=== PATIENT | female | born 1930 | race Caucasian/White ===

== ENCOUNTER 2018-09-23 06:09 | Inpatient (IN) | payer MEDICARE, BC ==
[~2018-09-23] VITALS: Ht 167.6 cm; Wt 112.3 kg
--- NOTE | ~2018-09-23 | EKG ---
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
[~2018-09-23 06:09] MED LIST: ASPIRIN EC325 M1 PO; ASPIRIN EC81 M1 PO; ASPIRIN325; ASPIRIN325 PO; B12INJ; BENADRYL25 MG PO; CIPRO500 MG PO; COLACE100 MG PO; COZAAR 50 MG TA50 M2 PO; DULCOLAX5 MG PO; EFFER-K 20 MEQ20 ME1 PO; ENOXAPARIN40 MG/0.1 INJECTION; FLUCONAZOLE 10100 MG PO; FUROSEMIDE 40 M40 M1 PO; K-DUR 20 MEQ T20 MEQ PO; LASIX 40 MG TAB40 M2 PO; LEVOTHYROXINE0.05 MG PO; LISINOPRIL20 MG PO; MAG-AL LIQUID30 ML PO; MELATONIN3 MG PO; METAMUCIL PAC1 UDPKT PO; MILK OF MA2400 MG/10 PO; NAPROSYN500 MG PO; NORCO 5-325 TA1 EACH PO; NORVASC 5 MG TAB5 MG PO; NOVOLOG100 UNIT/1 SUBQ; PANTOPRAZOLE SO40 M1 PO; PHENERGAN 25 MG25 M1 PO; POLYSACCHARIDE150 M1 PO; POTASSIUM20 PO; PRADAXA150 MG PO; PRADAXA75 MG PO; PRINIVIL10 MG PO; PROPAFENONE 15150 MG PO; SYNTHROID125 MCG PO; TOPROL XL100 MG PO; TYLENOL325 MG PO; VITAMIN B-12500 MCG PO
[2018-09-23 06:53] LABS: ABSOLUTE EOSINOPHILS 0.1 thou/uL (0.0-0.7); ABSOLUTE LYMPHOCYTES 1.4 thou/uL (0.8-5.3); ABSOLUTE MONOCYTES 0.9 thou/uL (0.0-1.2); ABSOLUTE NEUTROPHILS 6.7 thou/uL (1.6-8.1); BASOPHILS 0.5 %; EOSINOPHILS 0.7 %; HEMATOCRIT 39.6 % (37.0-47.0); LYMPHOCYTES 15.2 %; MCH 27.9 pg (26.0-34.0); MCHC 32.9 g/dL (28.0-37.0); MCV 84.9 fL (80.0-100.0); MONOCYTES 9.7 %; MPV 9.8 fl. (7.2-11.1); NUCLEATED RBCS 0 /100WBC; PLATELET COUNT* 185 thou/uL (150-400); POLYS 73.9 %; RBC 4.66 mil/uL (4.20-5.00); RDW-CV 15.4 % (10.5-14.5); WBC 9.1 thou/uL (4.0-11.0)
[2018-09-23 07:07] LABS: CALCIUM 8.1 mg/dL (8.5-10.1); CREATININE 1.1 mg/dL (0.6-1.3); POTASSIUM 3.7 mmol/L (3.5-5.1)
[2018-09-23 07:08] LABS: INR 1.1; PROTIME 11.4 Seconds (9.20-11.50)
[2018-09-23 07:18] LABS: ALBUMIN 3.1 g/dL (3.4-5.0); TOTAL BILIRUBIN 1.7 mg/dL (<0.1-1.0); TOTAL PROTEIN 7.1 g/dL (6.4-8.2); TROPONIN-I LEVEL 0.16 ng/mL (<0.06)
[2018-09-23 09:35] VITALS: BP 148/82
[2018-09-23 09:59] VITALS: BP 150/65
--- NOTE | 2018-09-23 11:37 | EKG ---
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: Alexandra LEO : 1930 Requested By: Merissa Donnelly Order Number: [id number] MD: Reyes Reyna Measurements Intervals [place] Rate: 134 P: DC: QRS: -36 QRSD: 107 T: 121 QT: 323 QTc: 483 Interpretive Statements Atrial fibrillation Left axis deviation Consider anterior infarct Repolarization abnormality, prob rate related Compared to ECG 05/21/2017 14:39:46 Sinus rhythm no longer seen Left ventricular hypertrophy no longer present Electronically Signed On 09-23-2018 11:36:50 FIELD OPERATIONS MANAGER by Reyes Reyna [email or web address] <ELECTRONICALLY SIGNED> By: Reyes Reyna MD, FACC 09/23/18 1136 0634 0634 Reyes Reyna MD, [facility] /EPI
[2018-09-23 12:10] VITALS: BP 129/93
[2018-09-23 12:45] LABS: URINE BILIRUBIN NEGATIVE (Negative); URINE BLOOD NEGATIVE (Negative); URINE CLARITY CLEAR; URINE COLOR YELLOW; URINE GLUCOSE-RANDOM NEGATIVE (Negative); URINE KETONES NEGATIVE (Negative); URINE LEUKOCYTES-REFLEX NEGATIVE (Negative); URINE NITRITE-REFLEX NEGATIVE (Negative); URINE PROTEIN TRACE (Negative); URINE SPECIFIC GRAVITY <= 1.005 (1.005-1.030); URINE UROBILINOGEN 0.2 E.U./dl (0.2-1.0)
[2018-09-23 14:43] LABS: BE -3.2 mmol/L (-2 to +3); HCO3 25.7 mmol/L (22.0-26.0); PCO2 62.7 mmHg (35.0-45.0); PO2 85.2 mmHg (75.0-100.0); pH 7.231 (7.340-7.450)
--- NOTE | 2018-09-23 14:49 | CON ---
[address] [address] CONSULTATION Name: SARAH OSBORN Room: [address] IN M.R.#: [id number] Admission: 09/23/18 Attend Phys: Ervin Chew MD Discharge: Date of : [birth year] Report #: [id number] THIS REPORT FOR: //name// CC: Ervin Lai INDICATION: New onset atrial fibrillation and elevated troponin. HISTORY OF PRESENT ILLNESS: The patient is an 88-year-old white female with history of hypertension and paroxysmal atrial fibrillation. She quit taking her medicines a year ago. She presented to the hospital with symptoms to suggest acute heart failure. NT-proBNP is mildly elevated. Chest x-ray shows evidence of pulmonary vascular congestion. The patient reports orthopnea and dyspnea on exertion. She is not having luis chest pain. In this setting, she has an elevated troponin. She has atrial fibrillation with rapid ventricular response rate that is improved on a Cardizem drip. CTA of the chest shows coronary calcifications and calcifications of the larger arteries. She denies any history of myocardial infarction. She is somewhat limited in activity after a fracture of her right femur in the past. She is without other cardiac complaint. PAST MEDICAL HISTORY: 1. Paroxysmal atrial fibrillation. 2. Right femur fracture. 3. Hypertension. 4. Type 2 diabetes mellitus. 5. History of CVA. 6. Right arm fracture. 7. Hysterectomy. 8. Thyroidectomy. 9. Femur fracture. FAMILY HISTORY: Noncontributory. SOCIAL HISTORY: She is a lifelong nonsmoker. She does not drink alcohol. ALLERGIES: CODEINE, PENICILLIN, SULFA, TAPE. PHYSICAL EXAMINATION: VITAL SIGNS: Blood pressure 150/65, pulse is presently in the 80s and irregular. GENERAL: This is a morbidly obese, pleasant white female who does not appear to be in distress. HEENT: Extraocular muscles intact. Mucous membranes are moist. NECK: Shows no obvious jugular venous distention. CHEST: Reveals basilar rales. CARDIOVASCULAR: Reveals an irregularly irregular [place] [address] CONSULTATION Name: SARAH OSBORN Room: [address] IN [facility]#: [id number] Admission: 09/23/18 Attend Phys: Ervin Chew MD Discharge: Date of : [birth year] Report #: [id number] or murmur. ABDOMEN: Reveals a protuberant abdomen, soft and nontender. EXTREMITIES: Shows chronic edema with chronic skin changes associated with chronic edema. SKIN: Dry. LABORATORY DATA: A 12-lead EKG shows atrial fibrillation with rapid ventricular response rate and diffuse ST segment depression. Chest x-ray shows what appears to be pulmonary vascular congestion as outlined above. Labs are reviewed. Electrolytes are within normal limits. BUN 15, creatinine 1.1, serum glucose 167. LFTs within normal limits. Initial troponin was 0.16. NT-proBNP 2496. White blood cell count 9.1, hemoglobin 13.0, platelet count 185,000. IMPRESSION AND RECOMMENDATIONS: 1. Acute on chronic diastolic heart failure. Start IV Lasix and put in Michaels catheter. Follow I's and O's, control blood pressure and heart rate. 2. Hypertension. Medications being adjusted in an effort to improve blood pressure control. 3. Elevated troponin, likely due to a type 2 myocardial infarction with a strain due to heart failure and atrial fibrillation. She is not having symptoms to suggest acute coronary syndrome. Consider noninvasive stress testing down the road. 4. Paroxysmal atrial fibrillation. The patient at high risk for stroke with a JENNIFER score of at least 5. I would recommend anticoagulation. We will continue diltiazem drip, giving a bolus of flecainide in an effort to restore sinus rhythm. <ELECTRONICALLY SIGNED> By: Max Kemp MD, FACC 09/23/18 1449 1058 1248Max Kemp MD, FACC /nt
--- NOTE | 2018-09-23 15:31 | NUR ---
PT ADMITTED TO ROOM 226 AROUND 0930 THIS AM. REFER TO ASSESSMENT. VSS. PT NOTED TO BE SOA WITH EXERTION. 2L O2/NC. TELE AFIB. CARDIZEM GTT. CARDIOLOGY CONSULTED AND NEW ORDERS TO PLACE CATHETER, ADMINISTER IV LASIX, AND OBTAIN ECHO. AROUND 1400 PT APPEARED VERY SOA, FLUSHED, ANXIOUS, AND C/O BURNING CHEST PAIN. STAT EKG OBTAINED, SR BBB. DR. RAE NOTIFIED OF PT'S CONDITION AND ELEVATED TROPONIN. DR. RAE CAME TO BEDSIDE. RT FOR STAT BREATHING TREATMENT. STAT CXRAY OBTAINED. LABS OBTAINED. RT PLACED PT ON BIPAP. LASIX AND ATIVAN GIVEN IVP. PT RESTING AND STABLE WHILE ON BIPAP. REPEAT ABG TO BE OBTAINED AFTER ONE HOUR. WILL CONTINUE TO MONITOR CLOSELY. NO OTHER CONCERNS AT THIS TIME. CLWR. WCTM.
[2018-09-23 16:03] VITALS: BP 132/65
--- NOTE | 2018-09-23 16:21 | 2DMMODE ---
[place] [address] 2 D/M-MODE ECHOCARDIOGRAM Name: SARAH OSBORN Room: [address] IN [facility]#: [id number] Admission: 09/23/18 Attend Phys: Ervin Chew, Discharge: Date of : [birth year] Date of Service: 09/23/18 1621 Report #: [id number] THIS REPORT FOR: //name// APPROVED REPORT Study performed: 09/23/2018 15:06:51 EXAM: Comprehensive 2D, Doppler, and color-flow Echocardiogram Patient Location: In-Patient Room #: [facility] BSA: 2.29 HR: 75 bpm BP: 129/93 mmHg Other Information Study Quality: Fair Indications Dyspnea 2D Dimensions IVSd: 12.43 (7-11mm) LVOT Diam: 20.18 (18-24mm) LVDd: 51.61 mm PWd: 12.62 (7-11mm) Ascending Ao: 30.29 (22-36mm) LVDs: 38.77 (25-40mm) Aortic Root: 28.33 mm Volumes Left Atrial Volume (Systole) LA ESV Index: 25.50 mL/m2 Aortic Valve AoV Peak Thee.: 1.30 m/s AO Peak Gr.: 6.71 mmHg LVOT Max P.90 mmHg AO Mean Gr.: 3.83 mmHg LVOT Mean P.92 mmHg LVOT Max V: 0.69 m/s AO V2 VTI: 19.52 cm LVOT Mean V: 0.44 m/s ADELAI (VTI): 1.91 cm2 LVOT V1 VTI: 11.63 cm Mitral Valve MV Decel. Time: 156.69 ms MV PHT: 45.44 ms MVA (PHT): 4.84 [place]2 [place] [address] 2 D/M-MODE ECHOCARDIOGRAM Name: OSBORNSARAHJessie MENDOZA Room: [address] IN ..#: [id number] Admission: 09/23/18 Attend Phys: Ervin Chew, Discharge: Date of : [birth year]/06/[birth year] Date of Service: 09/23/18 1621 Report #: [id number] TDI Medial E' Thee.: 0.10 m/s Lateral E' Thee.: 0.09 m/s Pulmonary Valve PV Peak Thee.: 1.08 m/s PV Peak Gr.: 4.71 mmHg Left Ventricle The left ventricle is normal size. There is mild global hypokinesis. Mild concentric left ventricular hypertrophy. Left ventricular systolic function is mildly decreased. LVEF is 45-50%. This study is not technically sufficient to allow evaluation of the LV diastolic function due to atrial fibrillation. Right Ventricle The right ventricle is normal size. The right ventricular systolic function is normal. Atria Left atrium is mildly dilated. The right atrium size is normal. Aortic Valve The aortic valve is normal in structure. No aortic regurgitation is present. There is no aortic valvular stenosis. Mitral Valve The mitral valve is normal in structure. Mild mitral regurgitation. No evidence of mitral valve stenosis. Tricuspid Valve The tricuspid valve is normal in structure. There is no tricuspid valve regurgitation noted. Pulmonic Valve The pulmonary valve is normal in structure. There is no pulmonic valvular regurgitation. Great Vessels The aortic root is normal in size. IVC is normal in size and collapses >50% with inspiration. Pericardium There is no pericardial effusion. <Conclusion> [place] [address] 2 D/M-MODE ECHOCARDIOGRAM Name: OSBORNSARAH REJI Room: [address] IN .R.#: [id number] Admission: 09/23/18 Attend Phys: Ervin Chew, Discharge: Date of : [birth year]06/[birth year] Date of Service: 09/23/18 1621 Report #: [id number] The left ventricle is normal size. Mild concentric left ventricular hypertrophy. Left ventricular systolic function is mildly decreased. LVEF is 45-50%. There is mild global hypokinesis. Left atrium is mildly dilated. IVC is normal in size and collapses >50% with inspiration. <ELECTRONICALLY SIGNED> By: Max Kemp MD, FACC 09/23/181620 20 20 Max Kemp MD, FACC /INF
[2018-09-23 16:25] VITALS: BP 132/65
[2018-09-23 16:49] LABS: PCO2 64.8 mmHg (35.0-45.0); PO2 79.3 mmHg (75.0-100.0); pH 7.256 (7.340-7.450)
[2018-09-23 16:50] LABS: BE -0.5 mmol/L (-2 to +3); HCO3 28.2 mmol/L (22.0-26.0)
--- NOTE | 2018-09-23 16:51 | EKG ---
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: : 1930 Requested By: Max Kemp Order Number: [id number] Amy MD: Max Kemp Measurements Intervals [place] Rate: 96 P: 96 HI: 107 QRS: -37 QRSD: 203 T: 137 QT: 403 QTc: 510 Interpretive Statements Sinus rhythm Short HI interval Left bundle branch block Baseline wander in lead(s) I,II,III,aVL,aVF,V1,V2,V3,V4,V5,V6 Compared to ECG 09/23/2018 06:34:32 Short HI interval now present Left bundle-branch block now present Atrial fibrillation no longer present Left-axis deviation no longer present Myocardial infarct finding no longer present Early repolarization no longer present Electronically Signed On 09-23-2018 16:50:59 JOB TRAINER by Max Kemp [email or web address] <ELECTRONICALLY SIGNED> By: Max Kemp MD, [facility] 09/23/18 1650 1401 1401 Max Kemp MD, [facility] /EPI
--- NOTE | 2018-09-23 16:51 | EKG ---
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: : 1930 Requested By: Max Kemp Order Number: [id number] Amy MD: Max Kemp Measurements Intervals [place] Rate: 97 P: 95 CT: 133 QRS: -38 QRSD: 198 T: 133 QT: 425 QTc: 540 Interpretive Statements Sinus rhythm Left bundle branch block Baseline wander in lead(s) I,II,III,aVL,aVF,V1,V2,V3,V4,V5,V6 Compared to ECG 09/23/2018 06:34:32 Left bundle-branch block now present Atrial fibrillation no longer present Left-axis deviation no longer present Myocardial infarct finding no longer present Early repolarization no longer present Electronically Signed On 09-23-2018 16:50:54 DIRECTOR MERIT SYSTEM by Max Kemp [email or web address] <ELECTRONICALLY SIGNED> By: Max Kemp MD, FACC 09/23/18 1650 1400 1400 Max Kemp MD, FACC /EPI
--- NOTE | 2018-09-23 16:52 | EKG ---
[place] [address] ELECTROCARDIOGRAM REPORT Name: SARAH OSBORN Room: [address] ADM IN M.R.#: [id number] Admission: 09/23/18 Attend Phys: Ervin Chew MD Discharge: Date of : [birth year] Report #: [id number] THIS REPORT FOR: //name// [facility] Test Date: 2018-09-23 Test Time: 14:56:11 Pat Name: SARAH OSBORN Department: Room: [address] Gender: F Independent Driver: : 1930 Requested By: Ervin Chew Order Number: [id number] Reading MD: Max Kemp Measurements Intervals [place] Rate: 106 P: IN: QRS: -34 QRSD: 197 T: 128 QT: 444 QTc: 590 Interpretive Statements Atrial flutter with predominant 2:1 AV block Left bundle branch block Compared to ECG 09/23/2018 06:34:32 2:1 AV block now present Left bundle-branch block now present Atrial fibrillation no longer present Left-axis deviation no longer present Myocardial infarct finding no longer present Early repolarization no longer present Electronically Signed On 09-23-2018 16:52:03 GLOBAL MARKETING SPECIALIST by Max Kemp [email or web address] <ELECTRONICALLY SIGNED> By: Max Kemp MD, FACC 09/23/18 1652 1456 1456 Max Kemp MD, FAC /EPI
[2018-09-23 20:00] VITALS: BP 117/65
[2018-09-24] VITALS: BP 114/62
[2018-09-24 04:00] VITALS: BP 135/66
--- NOTE | 2018-09-24 05:52 | NUR ---
PATIENT PARTIALLY PROGRESSING TOWARDS GOALS: PATIENT REMAINS ON BIPAP THIS SHIFT, O2 REMAINS >92%. PATIENT DENIES PAIN AND DISCOMFORT. FOELY REMAINS IN PLACE TO DD. PATIENT HAD AN EPISODE OF ANXIETY WITH THE BIPAP BUT RESOLVED WITH REASSURANCE AND THERAPEUTIC COMMUNICATION. EDUCATION PROVIDED ON BIPAP AND PURPOSE. PATIENT REMAINS IN AFIB, ON CARDIZEM GTT AT 5 ML/HR. HOURLY ROUNDING OBSERVED. CALL LIGHT WITHIN REACH
--- NOTE | 2018-09-24 07:51 | CON ---
[address] [address] CONSULTATION Name: SARAH OSBORN Room: [address] ADM IN .R.#: [id number] Admission: 09/23/18 Attend Phys: Ervin Chew MD Discharge: Date of : [birth year] Report #: [id number] THIS REPORT FOR: //name// CC: Ervin Kemp MD DATE OF SERVICE: 09/23/2018 ATTENDING PHYSICIAN: Ervin Chew MD ATTENDING PHYSICIAN: The patient was admitted on 09/23 early this morning. She is in room 226. INDICATION FOR CONSULTATION: Acute hypoxic hypercarbic respiratory failure, dyspnea. CLINICAL SUMMARY: The patient is an 88-year-old female, nonsmoker, who presented to the hospital with shortness of breath. The patient has had some PND and orthopnea. She has had a dry cough. She has been short of breath for probably the last several weeks. Her is not a very accurate historian. When she was seen in the emergency room, she had atrial fibrillation with a rapid ventricular response and is improved on a Cardizem drip. Blood pressure has been adequate, 110s to 120s. CT angio of the chest showed coronary artery calcification and some compressive atelectasis and some mild CHF with pleural effusions. She quit taking all of her medications about a year ago because she was feeling better and she has not felt well since then. She is not a smoker, was not on oxygen, was not on CPAP at home, and was not using any inhalers at home. PAST MEDICAL HISTORY: She has a history of atrial fibrillation, right femur fracture, which was pinned, hypertension, diabetes mellitus type 2 with nephropathy, neuropathy, and vasculopathy. She has had a previous right arm fracture. PAST SURGICAL HISTORY: Includes hysterectomy, thyroidectomy reasons unknown and femur fracture, which was pinned. ALLERGIES: She has allergies or intolerances to PENICILLIN, SULFA, CODEINE, and TAPE. OUTPATIENT MEDICATIONS: We are still trying to clarify those since [place] has [place] [address] CONSULTATION Name: ANURAGSARAH MENDOZA Room: [address] IN [facility]#: [id number] Admission: 09/23/18 Attend Phys: Ervin Chew MD Discharge: Date of : [birth year] Report #: [id number] CURRENT MEDICATIONS: Includes flecainide orally and then DuoNeb breathing treatments just recently started, Protonix 40 mg daily, lorazepam 1 mg IV push times 1. Keep her BiPAP on. She has had 180 mg of Lasix IV push at this time and also on rivaroxaban, Xarelto 20 mg daily for atrial fib, and BiPAP oxygen at 100%. FAMILY HISTORY: Negative for premature cardiopulmonary disease. SOCIAL HISTORY: She is retired. I am not certain she worked outside the home. She lives with her . She has been off her medicines for years. She is a nonsmoker, nondrinker. REVIEW OF SYSTEMS: A 14-point review of systems was attempted and the could not cooperate, basically was negative except for the pertinent positives in HPI. PHYSICAL EXAMINATION: GENERAL: This is an ill-appearing 88-year-old female, resting on BiPAP. VITAL SIGNS: Currently, her blood pressure is 132/66. She is on no pressors, heart rate in ventricular response is 90-96. She is slipping in and out of sinus rhythm versus atrial fib, respirations are 20 on a backup rate of 20 on the BiPAP machine. Saturation is 97%-98% on 100% BiPAP, temperature is 36.8 degrees. She is 5 feet 4 inches tall, weight is 128 kilograms or 275 pounds, BMI is 46. HEENT: BiPAP mask is in place. Pharynx is crowded. NECK: Supple, without nodes. Thick neck tissue is noted. CHEST: Shows diminished breath sounds with few rhonchi and crackles. Occasional wheeze is noted. CARDIOVASCULAR: Shows diminished heart tones with irregular rate and rhythm with ventricular response about 100. No S3 is noted. ABDOMEN: Obese without masses or megaly. EXTREMITIES: No calf tenderness. No cyanosis, clubbing or edema. She has some chronic venous stasis changes. NEUROLOGIC: She will withdraw to commands. LABORATORY DATA: From this morning shows hemoglobin 13, white count 9100, platelets are 185,000, normal differential. Sodium is 139, potassium is 3.7, bicarbonate is 29, BUN is 15, creatinine is 1.1, glucose is 167 and calcium is 8.1, total bilirubin is elevated at 1.7, AST and ALT were both within normal limits and troponin was bumped at 0.16. Anti-proBNP slightly elevated 2496. Albumin was 31. Lipase normal at 133. ABGs about 2:30 today on 100% BiPAP 16/6 with a backup rate of 14, shows a pO2 of 85, pH of 7.23, pCO2 of 62, bicarbonate is 26 and a sat of 94%. Carboxyhemoglobin was only 0.5. IMAGING DATA: CT angio of the chest was negative for pulmonary emboli, mild congestive heart failure changes. Some compressive atelectasis changes are [facility] [address] [place] [address] CONSULTATION Name: SARAH OSBORN Room: [address] IN ..#: [id number] Admission: 09/23/18 Attend Phys: Ervin Chew MD Discharge: Date of : [birth year] Report #: [id number] noted. IMPRESSION: 1. Acute hypoxic hypercarbic respiratory failure, probably combination of fluid overload, diastolic dysfunction and untreated obstructive sleep apnea. May have some underlying chronic obstructive pulmonary disease or fibrosis also. 2. Obesity. 3. Diabetes mellitus type 2 with nephropathy, neuropathy, and vasculopathy. 4. Probable untreated obstructive sleep apnea. PLAN: We will keep her on the BiPAP, may adjust the machine a little bit and we will see what her followup blood gases show. It appears the patient wants to be intubated, was not all that certain. Her prognosis is guarded. Dr. Kmep is going to try and squeeze and diurese her and see if we can get her oxygenation better. We will see if the BiPAP will buy us some time. TIME SPENT: I spent 35 minutes on this critical care consult. <ELECTRONICALLY SIGNED> By: Anibal Hopson MD 09/24/18 0751 1639 0047Akalyani Hopson MD /nt
[2018-09-24 08:00] VITALS: BP 130/65
[2018-09-24 09:47] LABS: BE -2.5 mmol/L (-2 to +3); HCO3 23.4 mmol/L (22.0-26.0); PCO2 44.6 mmHg (35.0-45.0); PO2 72.7 mmHg (75.0-100.0); pH 7.338 (7.340-7.450)
[2018-09-24 09:50] LABS: HEMATOCRIT 40.3 % (37.0-47.0); HEMOGLOBIN 13.1 gm/dL (12.0-15.0); MCH 27.8 pg (26.0-34.0); MCHC 32.4 g/dL (28.0-37.0); MCV 85.7 fL (80.0-100.0); NUCLEATED RBCS 0 /100WBC; PLATELET COUNT* 192 thou/uL (150-400); RDW-CV 15.1 % (10.5-14.5); WBC 11.9 thou/uL (4.0-11.0)
[2018-09-24 09:59] LABS: CALCIUM 8.2 mg/dL (8.5-10.1); CREATININE 1.7 mg/dL (0.6-1.3); POTASSIUM 4.1 mmol/L (3.5-5.1)
--- NOTE | 2018-09-24 10:40 | NUR ---
ASSUMED CARE OF PT AROUND 0730 THIS AM. REFER TO ASSESSMENT. PT COMPLIANT WITH BIPAP THIS AM ALTHOUGH VOICING CONCERNS SHE DOESN'T WANT TO WEAR IT ANYMORE. PT GIVEN SSI WITH BREAKFAST AND STATES SHE WILL NOT TAKE INSULIN WHEN SHE GOES HOME WHETHER SHE NEEDS IT OR NOT. ATTEMPTED TO GIVE PT SOME DISEASE PROCESS EDUCATION. ABG'S OBTAINED THIS AM. REFER TO RESULTS. PT PLACED ON 4L/NC WHILE TAKING MEDS. MEALS BREAKS KEPT TO A MINIMUM. NO OTHER CONCERNS AT THIS TIME. CLWR. WCTM.
[2018-09-24 10:53] LABS: ABSOLUTE LYMPHOCYTES 0.4 thou/uL (0.8-5.3); ABSOLUTE NEUTROPHILS 11.5 thou/uL (1.6-8.1)
[2018-09-24 10:54] LABS: PLATELET ESTIMATE ADEQUATE
[2018-09-24 10:55] LABS: HYPOCHROMASIA 2+; POLYCHROMASIA 1+
[2018-09-24 10:56] LABS: GIANT PLATELETS OCCASIONAL
[2018-09-24 10:57] LABS: MACROCYTES 1+
--- NOTE | 2018-09-24 11:30 | NUR ---
MET WITH PT, SPOUSE AND SON/NIC JASON. PT ON BIPAP, SON AND SPOUSE ANSWERED MOST OF QUESTIONS. PT LIVES WITH SPOUSE. SHE USES WALKER AND W/C TO GET AROUND. GETS OUT ABOUT ONCE A WEEK TO GO OUT TO EAT. PT HAS BEEN TO SNF AT [facility] AND [facility]. PER SON, NOT POSITIVE EXPERIENCES. SHE HASN'T HAD HH. PT IS INTERESTED IN NEW PCP. WILL DISCUSS WITH HER LATER WHEN OFF BIPAP. UNSURE OF PT'S NEEDS FOR DC AT THIS TIME, PREFERS TO RETURN HOME AT [place]. WILL FOLLOW
[2018-09-24 11:55] VITALS: BP 123/63
--- NOTE | 2018-09-24 15:50 | NUR ---
PT SOMEWHAT PROGRESSING TOWARDS GOALS THIS SHIFT. DISCUSSED RESUSCITATION ORDERS WITH PHYSICIAN. REQUESTING DNR. TOLERATED BIPAP THIS AM. ABG'S OBTAINED. PULMONOLOGY OK WITH PLACING PT ON 6L/NC OR VENTIMASK AT 50. PT PLACED ON 6L/NC. MAINTAINED SATS >90%. STARTED TO FEEL FLUSHED AND ANXIOUS AFTER 2 HOURS ON NC AND REQUESTED BIPAP. WILL ATTEMPT NC AGAIN AT DINNER TONIGHT. TELE SR AT LAST ASSESSMENT. NEPHROLOGY ORDERS FOR RENAL US OBTAINED. NO OTHER CONCERNS AT THIS TIME. CLWR. WCTM.
[2018-09-24 16:00] VITALS: BP 121/72
[2018-09-24 19:40] VITALS: BP 137/63
[2018-09-24 23:54] LABS: HEMATOCRIT 44.2 % (37.0-47.0); MCH 27.9 pg (26.0-34.0); MCHC 31.6 g/dL (28.0-37.0); MCV 88.3 fL (80.0-100.0); RDW-CV 15.5 % (10.5-14.5); WBC 24.4 thou/uL (4.0-11.0)
[2018-09-25] VITALS (15 sets, daily range): BP systolic 99–137; BP diastolic 33–92
[2018-09-25 00:02] LABS: CALCIUM 8.5 mg/dL (8.5-10.1); CREATININE 2.3 mg/dL (0.6-1.3); POTASSIUM 4.4 mmol/L (3.5-5.1)
[2018-09-25 00:10] LABS: MAGNESIUM 2.2 mg/dL (1.8-2.4); TROPONIN-I LEVEL 0.16 ng/mL (<0.06)
--- NOTE | 2018-09-25 02:12 | NUR ---
ASSUMED CARE OF PT AT 1900. PT WAS ALERT AND ORIENTED. VSS. PERRLA. NO COMPLAINTS OF PAIN. PT SOA WITH ANY EXERTION. PT WAS ON BIPAP 14/6, 60%, AND 14. AT ABOUT 2315, PT REPORTED BEING VERY SOA. WHEN I ARRIVED IN PTS ROOM, SHE HAD PULLED HER MASK OFF AND WAS CYANOTIC. PT WAS PLACED ON A NONREBREATHER AND A RAPID RESPONSE WAS CALLED. RESPIRATORY PLACED PT BACK ON BIPAP ON 100% FIO2. WE WHERE UNABLE TO GET SPO2 ABOVE 80% ON THE BIPAP. BLOOD PRESSURE REMAINED STABLE AT 140/82. BLOOD SUGAR WAS 169. HOWEVER, HEART RATE WENT UP AND RANGED FROM 110 TO 160. EKG SHOWED A FIB BUT WITH A MUCH WIDER QRS. PT WAS STARTED ON A LASIX DRIP AT 10MG PER HOUR AND CARDIZEM AT 10 MG/HR. AT 0100, PT CONVERTED INTO A SINUS RYTHM WITH A RATE OF 58. CARDIZEM WAS STOPPED. BLOOD PRESSURE WAS 132/61 AND SPO2 WAS 91%. AT THIS TIME BLOOD PRESSURE REMAINS STABLE. HEART RATE IS SINUS IN THE 60'S. SPO2 RANGES FROM 80 TO 92%. FAMILY WAS ALSO CALLED AT THE BEGINNING OF THIS EPISODE AND ARE NOW WITH PT IN THE ROOM.
[2018-09-25 08:52] LABS: CALCIUM 8.1 mg/dL (8.5-10.1); CREATININE 2.6 mg/dL (0.6-1.3); PHOSPHORUS* 7.4 mg/dL (2.5-4.9)
[2018-09-25 08:56] LABS: POTASSIUM 5.4 mmol/L (3.5-5.1)
[2018-09-25 13:15] LABS: CALCIUM 8.2 mg/dL (8.5-10.1); CREATININE 3.4 mg/dL (0.6-1.3); POTASSIUM 4.5 mmol/L (3.5-5.1)
--- NOTE | 2018-09-25 14:07 | EKG ---
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 : 1930 Requested By: Lavinia Gao Order Number: [id number] Reading MD: Max Kemp Measurements Intervals [place] Rate: 115 P: [place]: QRS: -29 QRSD: 214 T: 138 QT: 388 QTc: 537 Interpretive Statements Atrial fibrillation Left bundle branch block Baseline wander in lead(s) V1 Compared to ECG 09/23/2018 14:56:11 Atrial flutter no longer present 2:1 AV block no longer present Electronically Signed On 09-25-2018 14:06:51 DANCING MASTER by Max Kemp [email or web address] <ELECTRONICALLY SIGNED> By: Max Kemp MD, FACC 09/25/18 1406 2315 2315 Max Kemp MD, FACC /EPI
--- NOTE | 2018-09-25 15:06 | NUR ---
VSS, ASSUMED CARE OF PT THIS AM, ASSESSMENT PERFORMED AND CHARTED, FALL PRECAUTIONS IN PLACE AND CALL LIGHT IN REACH, PT IS ALERT TO SELF, TRACING SR C PAC ON THE MONITOR, SHE IS ON THE BIPAP, WITH FAMILY AT BEDSIDE, PT HAS RAMIREZ IN PLACE BUT SHE IS NO MAKING ANY UNRIN, PT GOAL IS TO IMPROVE BREATHING PT IS WEAK AND IMPULSIVE, SHE PULLS ON BIPAP MASK AND ON IV, TEMP DIALYSIS CATH WAS PLACED AT BEDSIDE, AND TAKEN DOWN TO ICU FOR MONITORING, CALLED REPOERT TO ICU AND WAS TAKEN DOWN, HOURLY ROUNDS COMPLTED.
--- NOTE | 2018-09-25 15:25 | NUR ---
PT TRANSFERED TO ICU. OXYGEN SATURATION 84-85%. DR HANEY NOTIFIED. RECEIVED ORDER TO ASK NEPHROLOGY TO DO DIALYSIS SOON POSSIBLE. NEPHROLOGY NOTIFIED AND EARLIEST DIALYSIS CAN BE DONE IS 1929. DR HANEY NOTIFIED OF THIS INFORMATION. DR CM KLINE NOTIFIED OF OXYGEN SATURATION IN 80'S. RECEIVED ORDER FOR BIPAP CHANGES. PT A DNR.
--- NOTE | 2018-09-25 15:42 | NUR ---
SPOKE WITH FAMILY AT BEDSIDE, PT TRANSFERRED TO ICU, ON BIPAP, TO GET DIALYSIS LATER TODAY. NURSE AND DR. PABON TALKING WITH FAMILY NOW. CASE MGT WILL CONTINUE TO FOLLOW.
--- NOTE | 2018-09-25 18:50 | NUR ---
PT HAS 1 IV ACCESS. UNABLE TO GET 2ND PERIPHERAL LINE. DR NOTIFIED RECEIVED ORDER FOR CENTRAL LINE AND CVP. ANESTHEIA CONSULTED TO PLACE CENTRAL LINE. ANESTHEIA UNABLE TO PLACE CENTRAL LINE. THEY STATED THEY COULD PUT IN A FEMORAL BUT DID NOT WANT TO INTRODUCE UNNCESSARY BACTERIA. PAGED TO CONFIRM FEMORAL LINE PLACEMENT. RECEIVED CONFIRMATION/ORDER FROM DR JOHNSON TO PLACE FEMORAL LINE. ANESTHEIA UNABLE TO PLACE LINE IN FEMORAL. ANESTHEIA ATTEMPTED TO PLACE PERIPHERAL LINE, AND UNABLE TO PLACE 2ND PERIPHERAL LINE. AIRPLANE DISPATCH CLERK NOTIFIED. PICC LINE NURSE AVAILABLE IN AM. DR JOHNSON CALLED AND NOTIFIED UNABLE TO GET CENTRAL LINE AND NO PICC LINE NURSE AVAILABLE. PER DR JOHNSON OKAY TO WAIT TILL AM TO GET A LINE.
--- NOTE | 2018-09-25 21:08 | NUR ---
ORDERS RECEIVED FOR PICC LINE PLACEMENT. PT. HAD MULTIPLE ATTEMPTS FOR CENTRAL LINE WITH NO SUCCESS AND HAD NO IV ACCESS CURRENTLY. LABS/HISTORY REVIEWED. PT. AND SON EDUCATED ON RISK/BENEFIT, CONSENT GIVEN. RIGHT UPPER ARM BASILIC LUIS PATENT WITH ULTRASOUND. PT. PREPPED AND DRAPED FOR MAXIMUM BARRIER. 1% LIDOCAINE GIVEN AT SITE. RIGHT UPPER ARM BASILIC CANULATED WITH ULTRASOUND GUIDANCE. TRIPLE LUMEN 5 NORTHERN IRISH LINE TRIMMED TO 50CM, WITH 2CM EXTERNAL. STERILE DRESSING PLACED WITH BIOPATCH. STAT CHEST XRAY OBTAINED. ALL SHARPS ACCOUNTED FOR.
--- NOTE | 2018-09-25 22:06 | NUR ---
XRAY NOTED PICC LINE TO EXTEND INTO THE RIGHT ATRIUM AND NEEDED TO BE PULLED BACK BY 5-7CM. DRESSING REMOVED AND LINE WITHDRAWN 7 CM TO MAKE A TOTAL OF 9MC EXTERNAL LINE. STERILE DRESSING REAPPLIED. LINE RELEASED TO RN FOR USE.
[2018-09-26] VITALS (60 sets, daily range): BP systolic 102–144; BP diastolic 24–58
[2018-09-26 03:50] LABS: HEMATOCRIT 37.6 % (37.0-47.0); HEMOGLOBIN 12.1 gm/dL (12.0-15.0); MCH 27.7 pg (26.0-34.0); MCHC 32.1 g/dL (28.0-37.0); MCV 86.3 fL (80.0-100.0); MPV 10.1 fl. (7.2-11.1); RBC 4.36 mil/uL (4.20-5.00); RDW-CV 15.3 % (10.5-14.5); WBC 16.5 thou/uL (4.0-11.0)
[2018-09-26 04:02] LABS: CALCIUM 7.8 mg/dL (8.5-10.1); CREATININE 3.5 mg/dL (0.6-1.3); POTASSIUM 4.2 mmol/L (3.5-5.1)
[2018-09-26 04:06] LABS: PHOSPHORUS* 5.5 mg/dL (2.5-4.9)
--- NOTE | 2018-09-26 06:51 | NUR ---
SLOW PROGRESSION TOWARDS GOALS, SEE COMPUTERIZED ASSESSMENT CHARTING FOR FURTHER DETAILS, ALERT TO SELF AND PARTIAL SITUATION. FOLLOWING COMMANDS. USING CALL LIGHT. SA02 =>94% ON BIPAP FIO2 100%. USING BIPAP WITH ENCOURAGEMENT ALL SHIFT. DIALYSIS LAST NOC, ONE LITER FLUID REMOVED PER MICROBIOLOGY SOIL SCIENTIST. DIALYSIS SCHEDULED AGAIN FOR THIS AM. REMAINS OLIGURIC 20CC DARK CONCENTRATED URINE WITH SEDIMENT. REMAINS ON AMODARONE GTT FOR AFIB, HR 50'S. FREQUENT ORAL CARE PROVIDED. REMAINS NPO THROUGHOUT NOC. AFEBRILE. DENIES PAIN OR DISCOMFORT. REFUSING SCD'S.
--- NOTE | 2018-09-26 12:16 | NUR ---
PT TOLERATED HIGH FLOW CANNULA FOR APPROX 2 HOURS THIS MORNING. WHILE BATHING SHE BECAME SHORT OF AIR AND THE BIPAP WAS PLACED BACK ON HER. WILL EVALUATE AGAIN AT LUNCH TIME TO TRY AND ALLOW PATIENT TO HAVE SOME FOOD. WILL CONTINUE TO MONITOR.
--- NOTE | 2018-09-26 19:09 | NUR ---
PT ASSESSMENT CHARTED. VSS THROUGHOUT SHIFT. PT HAS BEEN NSR THROUGHOUT SHIFT. Q2H TURNS TO MAINTAIN SKIN INTEGRITY. 2.5 L OFF DURING DIALYSIS. PT ON AND OFF BIPAP/HUMIDIFIED HIGH FLOW MASK ALLOWED. PT CURRENTLY ON THE BIPAP SHE BECAME SOA/BREATHING IN THE 30'S. PT UNABLE TO EAT BREAKFAST AND LUNCH BUT WAS ABLE TO EAT SOME DINNER.
[2018-09-27] VITALS (56 sets, daily range): BP systolic 128–176; BP diastolic 29–108
[2018-09-27 04:33] LABS: ABSOLUTE LYMPHOCYTES 0.5 thou/uL (0.8-5.3); ABSOLUTE MONOCYTES 0.8 thou/uL (0.0-1.2); ABSOLUTE NEUTROPHILS 13.5 thou/uL (1.6-8.1); BASOPHILS 0.1 %; HEMATOCRIT 36.1 % (37.0-47.0); HEMOGLOBIN 11.9 gm/dL (12.0-15.0); LYMPHOCYTES 3.5 %; MCH 28.1 pg (26.0-34.0); MCHC 32.9 g/dL (28.0-37.0); MCV 85.4 fL (80.0-100.0); MONOCYTES 5.6 %; MPV 10.4 fl. (7.2-11.1); NUCLEATED RBCS 0 /100WBC; PLATELET COUNT* 168 thou/uL (150-400); POLYS 90.8 %; RBC 4.22 mil/uL (4.20-5.00); RDW-CV 15.2 % (10.5-14.5); WBC 14.9 thou/uL (4.0-11.0)
[2018-09-27 05:03] LABS: ALBUMIN 2.8 g/dL (3.4-5.0); CALCIUM 7.9 mg/dL (8.5-10.1); CREATININE 3.8 mg/dL (0.6-1.3); POTASSIUM 4.4 mmol/L (3.5-5.1); TOTAL PROTEIN 6.5 g/dL (6.4-8.2)
--- NOTE | 2018-09-27 06:45 | NUR ---
PROGRESSING TOWARDS GOALS. REMAINS ON BIPAP DURING NOC, FIO2 60%. SAO2 =>96%. AFIB SLOW RATE HR 50'S TO SB WITH FIRST DEGREE AVB WITH OCCASIONAL PVC'S. FREQUENT ORAL CARE PROVIDED. REPOSITIONING Q2 AND PRN TO PROMOTE COMFORT AND PREVENT SKIN BREAKDOWN. B/P WNL. REMAINS ON AMIODARONE GTT 0.5MG/HR VIA INFUSION PUMP. DENIES PAIN OR DISCOMFORT. ANXIOUS AND AWAKE MOST OF NOC, STATES "CANT GET COMFORTABLE TO GO TO BED" REORIENTED TO PLACE, TIME, AND SITUATION PRN. 90CC DARK CONCENTRATED URINE OUTPUT VIA RAMIREZ. RAMIREZ REMAINS PATENT TO DD. CALL LIGHT IN REACH AT ALL TIMES. SAFETY MAINTAINED.
[2018-09-27 06:48] LABS: ABSOLUTE BASOPHILS 0.1 thou/uL (0.0-0.2); ABSOLUTE LYMPHOCYTES 0.4 thou/uL (0.8-5.3); ABSOLUTE NEUTROPHILS 13.3 thou/uL (1.6-8.1); BASOPHILS 0.6 %; HEMATOCRIT 36.5 % (37.0-47.0); HEMOGLOBIN 11.8 gm/dL (12.0-15.0); MCHC 32.4 g/dL (28.0-37.0); MCV 86.4 fL (80.0-100.0); MONOCYTES 6.7 %; MPV 10.1 fl. (7.2-11.1); NUCLEATED RBCS 0 /100WBC; PLATELET COUNT* 165 thou/uL (150-400); POLYS 89.7 %; RBC 4.23 mil/uL (4.20-5.00); RDW-CV 15.4 % (10.5-14.5); WBC 14.8 thou/uL (4.0-11.0)
[2018-09-27 06:59] LABS: ALBUMIN 2.6 g/dL (3.4-5.0); CALCIUM 7.8 mg/dL (8.5-10.1); PHOSPHORUS* 4.8 mg/dL (2.5-4.9); POTASSIUM 4.5 mmol/L (3.5-5.1); TOTAL PROTEIN 6.4 g/dL (6.4-8.2)
[2018-09-27 07:24] LABS: CREATININE 3.9 mg/dL (0.6-1.3)
[2018-09-27 07:47] LABS: SODIUM ND mmol/L (136-145)
[2018-09-27 07:48] LABS: CHLORIDE ND mmol/L (98-107); POTASSIUM ND mmol/L (3.5-5.1)
[2018-09-27 07:51] LABS: CO2 ND mmol/L (21-32)
[2018-09-27 07:52] LABS: ANION GAP ND mmol/L (7-16)
[2018-09-27 07:53] LABS: BUN ND mg/dL (7-18); CREATININE ND mg/dL (0.6-1.3)
[2018-09-27 07:54] LABS: GLUCOSE ND mg/dL (70-99)
[2018-09-27 07:55] LABS: CALCIUM ND mg/dL (8.5-10.1)
[2018-09-27 07:56] LABS: ALBUMIN ND g/dL (3.4-5.0); PHOSPHORUS* ND mg/dL (2.5-4.9)
--- NOTE | 2018-09-27 20:35 | NUR ---
PT ASSESSMENT CHARTED. VSS THROUGHOUT SHIFT. PT SPENT MOST OF THE DAY ON THE HIGH FLOW CANNULA VS THE BIPAP TODAY. DIALYSIS FOR 3 HOURS WITH 4L TAKEN OFF. URINE OUTPUT 250. FREQUENT TURNING FOR COMFORT. DECREASED APPETITE BUT PATIENT DID SIT UP TO EAT ALL MEALS IN BED. NO OTHER COMPLAINTS.
--- NOTE | 2018-09-27 21:32 | NUR ---
RECIEVED REPORT AND ASSUMED CARE OF PT AT 1930. PT REPORTED CONSTANT BACK APIN AND PAIN IN RIBS WHEN COUGHING. PT GIVEN PRN TYLENOL WITH MINIMAL RELIEF. PAGED DR HANEY AND ASKED FOR STRONGER PAIN MEDICATION. RECIEVED ORDER NOT TO GIVE ANY NARCOTICS DUE TO RESPIRATORY FAILURE. PT REPOSITIONED MANY TIMES IN EFFORT TO MAKE MORE COMFORTABLE.
[2018-09-28] VITALS (31 sets, daily range): BP systolic 103–176; BP diastolic 45–67
[2018-09-28 04:17] LABS: HEMATOCRIT 38.1 % (37.0-47.0); HEMOGLOBIN 12.3 gm/dL (12.0-15.0); MCH 27.7 pg (26.0-34.0); MCHC 32.2 g/dL (28.0-37.0); MCV 85.8 fL (80.0-100.0); NUCLEATED RBCS 0 /100WBC; PLATELET COUNT* 172 thou/uL (150-400); RBC 4.44 mil/uL (4.20-5.00); RDW-CV 15.7 % (10.5-14.5); WBC 14.2 thou/uL (4.0-11.0)
[2018-09-28 04:43] LABS: ALBUMIN 2.7 g/dL (3.4-5.0); PHOSPHORUS* 6.3 mg/dL (2.5-4.9); POTASSIUM 4.9 mmol/L (3.5-5.1); TOTAL BILIRUBIN 1.2 mg/dL (<0.1-1.0); TOTAL PROTEIN 6.8 g/dL (6.4-8.2)
--- NOTE | 2018-09-28 05:55 | NUR ---
PT MAINTAINED ON HIGH FLOW NASAL CANULA AT 35 LITERS, 65%. PT MAINTAINED O2 SAT > 92% DURING SHIFT. PT'S HEART RATE WITHIN NORMAL LIMITS DURING SHIFT. PT RECIEVED PRN HYDRALAZINE ONCE DURING NIGHT FOR SYS BP > 170. PT AFEBRILE DURING SHIFT. PT HAD INTERMITTENT EPISODES OF ANXIETY. RECIEVED ORDER FOR PRN LORAZEPAM FROM DR PABON. PT RESTINGQUIETLY AT THIS TIME. PT AROUSES TO VOICE. PT NOT PROGRESSING TOWARD GOALS.
[2018-09-28 06:25] LABS: ABSOLUTE LYMPHOCYTES 0.1 thou/uL (0.8-5.3); ABSOLUTE MONOCYTES 0.1 thou/uL (0.0-1.2); ABSOLUTE NEUTROPHILS 13.9 thou/uL (1.6-8.1); PLATELET ESTIMATE ADEQUATE
--- NOTE | 2018-09-28 09:06 | NUR ---
PATIENT SAT EDGE OF BED WITH TWO RNS AND RT. TOLERATED WELL, BUT BECAME WEAK AND REQUESTED TO LAY BACK DOWN. FRAME OPENER NOTIFIED FOR RECLINER NEED. WILL ATTEMPT TO TRANSFER PATIENT TO RECLINER THIS AFTERNOON.
[2018-09-28 10:09] LABS: HEPATITIS B SURFACE AG Negative (Negative)
--- NOTE | 2018-09-28 14:39 | NUR ---
Nutrition: Pt assessed for high BMI. Admitted with afib RVR. Pt was weak on side of bed this morning, per RN notes. Ate 75% of lunch today. BG is elevated, but pt is CHO controlled diet. BG 200s, BUN 76, cr 4, Na 135, alb 2.7, prealb 14.5. Pt has some edema. Wt: 260#. No nutrition interventions are needed at this time. Will follow up per protocol.
--- NOTE | 2018-09-28 17:55 | NUR ---
PATIENT ASSESSMENT REMAINED STABLE. PATIENT ORIENTED X3 THROUGHOUT SHIFT, BUT LETHARGIC AT TIMES R/T INCREASED ACTIVITY/BATH/DIALYSIS. SR WITH BBB. ABLE TO TIRRATE TO 61% ON HIGH FLOW NASAL CANNULA AT 35L. BATH GIVEN. ABLE TO SIT AT EDGE OF BED X2, NOT ABLE TO STAND AT THIS TIME. DIALYSIS THIS EVENING. PATIENT STATING DURING DIALYSIS "DO PEOPLE EVER FROM THIS? I AM JUST READY FOR THE LORD TO TAKE ME HOME." PATIENT STATES SHE DOES NOT FEEL BAD, BUT IS SCARED. REASSURANCE GIVEN. PATIENT CONTINUES TO STATE SHE JUST "WANTS THE LORD TO TAKE HER HOME" ENCOURAGED PATIENT TO HAVE CONVERSATION WITH HER FAMILY TOMORROW ABOUT WHAT SHE WANTS OUT OF HER CARE THEY MADE THE DECISION FOR DIALYSIS. EDUCATED PATIENT THAT DIALYSIS MAY NOT BE PERMANENT NEED. PATIENT APPEARS LESS ANXIOUS AT THIS TIME. AMIO GTT DISCONTINUED PER CARDIOLOGY, WILL STOP AND START PO POST DIALYSIS. POOR APPETITE NOTED THIS SHIFT R/T RESPIRATORY STATUS AND STRENGTH.
[2018-09-29] VITALS (22 sets, daily range): BP systolic 140–169; BP diastolic 40–57
[2018-09-29 04:36] LABS: CALCIUM 8.2 mg/dL (8.5-10.1); CREATININE 3.3 mg/dL (0.6-1.3); POTASSIUM 4.9 mmol/L (3.5-5.1)
[2018-09-29 04:47] LABS: ABSOLUTE LYMPHOCYTES 0.2 thou/uL (0.8-5.3); ABSOLUTE MONOCYTES 0.7 thou/uL (0.0-1.2); ABSOLUTE NEUTROPHILS 14.7 thou/uL (1.6-8.1); BASOPHILS 0.1 %; HEMATOCRIT 39.2 % (37.0-47.0); HEMOGLOBIN 12.9 gm/dL (12.0-15.0); LYMPHOCYTES 1.5 %; MCH 28.2 pg (26.0-34.0); MCV 85.5 fL (80.0-100.0); MONOCYTES 4.2 %; MPV 9.9 fl. (7.2-11.1); NUCLEATED RBCS 0 /100WBC; PLATELET COUNT* 189 thou/uL (150-400); POLYS 94.2 %; RBC 4.58 mil/uL (4.20-5.00); RDW-CV 15.6 % (10.5-14.5); WBC 15.6 thou/uL (4.0-11.0)
--- NOTE | 2018-09-29 07:02 | NUR ---
Early in shift pt reports "I want to ." Pt denies feeling impending doom or physical change that would lead her to think is imminent, just simply lacks the desire to live. Pt's son came in at around 1999 to visit, and RN reported to him what had been said by pt, and that she requested to have him contacted to let him know. Pt's son reports that he "is not too surprised" to hear that; and reports that pt was hesitant to come to hospital at first, but eventually stated that she'd "better go ahead and come in." VSS. Pt turned to Rt side for a short period of time, then later to Lt side for short amount of time; but pt preferred to be supine or semi-silveira position and refused turns. Pt on BIPAP from approx MN to 0300, then requested to have it off. Will continue to monitor.
--- NOTE | 2018-09-29 15:33 | NUR ---
PATIENT CARE ASSUMED AT 0700. PATIENT AOX3 THIS SHIFT. ANIXOUS THIS AM, MORE CALM THROUGHOUT SHIFT. CONTINUING TO MAKE STATEMENTS ABOUT WANTING TO GIVE UP. DR HANEY NOTIFIED WHO CAME TO SPEAK WITH AND SON. PATIENT STATED SHE DID NOT WANT HOSPICE, BUT SHE JUST WANTED TO "GO TO SLEEP". DR HANEY URGED FAMILY TO HAVE CONVERSATION WITH PATIENT ABOUT CARE PLAN. NO DIALYSIS TODAY PER NEPHROLOGY. PATIENT DOWNGRADED TO TELEMETRY STATUS. REPORT GIVEN TO [place] LAUREN. TRANSFERED TO ROOM 230 AT 1530. ALL BELONGINGS TAKEN WITH PATIENT. ASSISTED UPSTAIRS BY COPY PREPARER IN WHEELCHAIR. SON ARRIVED SHORTLY AFTER AND NOTIFIED OF PATIENT'S NEW ROOM.
--- NOTE | 2018-09-29 18:24 | NUR ---
PT TRANSFER ON TELE AT 1530 REPORT RECEIVED FROM ICU NURSE. PT IS AOX4 SR ON IT SECURITY ANALYST. ON 60% ON HIGH FLOW. OUT OF BED AND STAND BY BEDSIDE WITH PT. IV LINE PATENT. ACCUCHECK AND INSULIN GIVEN. PT CONSUMED DINNER. HYDRATION ENCOURAGED, MADE COMFORTABLE IN BED WITH PILLOW SUPPORT. REFER TO CHART FOR JAMES HELLER PATENT. WILL CONTINUE TO MONITOR
[2018-09-29 19:07] LABS: IgA 205 mg/dL (64-422); IgG 860 mg/dL (700-1600); IgM 49 mg/dL (26-217)
[2018-09-30] VITALS: BP 152/58
[2018-09-30 04:00] VITALS: BP 147/50
[2018-09-30 05:25] LABS: ABSOLUTE LYMPHOCYTES 0.2 thou/uL (0.8-5.3); ABSOLUTE MONOCYTES 0.5 thou/uL (0.0-1.2); ABSOLUTE NEUTROPHILS 13.1 thou/uL (1.6-8.1); BASOPHILS 0.3 %; HEMATOCRIT 37.7 % (37.0-47.0); HEMOGLOBIN 12.2 gm/dL (12.0-15.0); LYMPHOCYTES 1.6 %; MCH 27.6 pg (26.0-34.0); MCHC 32.4 g/dL (28.0-37.0); MCV 85.2 fL (80.0-100.0); MONOCYTES 3.5 %; MPV 9.2 fl. (7.2-11.1); NUCLEATED RBCS 0 /100WBC; PLATELET COUNT* 187 thou/uL (150-400); POLYS 94.6 %; RBC 4.43 mil/uL (4.20-5.00); RDW-CV 15.3 % (10.5-14.5); WBC 13.8 thou/uL (4.0-11.0)
[2018-09-30 05:46] LABS: ALBUMIN 2.6 g/dL (3.4-5.0); CALCIUM 7.9 mg/dL (8.5-10.1); CREATININE 3.4 mg/dL (0.6-1.3); POTASSIUM 5.3 mmol/L (3.5-5.1); TOTAL BILIRUBIN 0.8 mg/dL (<0.1-1.0); TOTAL PROTEIN 6.4 g/dL (6.4-8.2)
--- NOTE | 2018-09-30 05:54 | NUR ---
ASSUMED CARE OF PT AFTER REPORT AT 1930. PT A&OX3-4. VSS. PHSYICAL ASSESSMENT COMPLETED AND CHARTED. PT ON HIGH FLOW NC WITH 92% O2 SAT%. PT TRACING SR ON TELE. PT RAMIREZ TO DEPENDENT DRAIN. PT C/O OF GENERALIZED BODY PAIN WITH PAIN SCALE OF 10/10-PAIN MEDS GIVEN PER NOV. PT REFUSED TO WEAR BIPAP- RT INFORMED. RIGHT PICC LINE PATENT & INTACT. CALL LIGHT WITHIN REACH.
[2018-09-30 08:00] VITALS: BP 139/42
[2018-09-30 09:40] LABS: HCO3 24.6 mmol/L (22.0-26.0); PO2 77.4 mmHg (75.0-100.0)
[2018-09-30 09:45] LABS: PCO2 54.6 mmHg (35.0-45.0); pH 7.271 (7.340-7.450)
--- NOTE | 2018-09-30 10:37 | NUR ---
ASSUMED PT CARE AT 0730 REPORT RECEIVED FROM NURSE PT IS AOX4 1ST AV BLOCK BBB ON PHOTO MACHINE OPERATOR. ON 60% OF HIGH FLOW O2. CRITICAL ABGS COMMUNICATED TO DR VITALY Lara NEW ORDER RECEIVED AND COMMUNICATED TO RT. PT MADE COMFORTABLE AND SITTED IN BED. CONSUMED BREAKFAST AND MEDICINE GIVEN. DR HANEY IN ROOM WITH PT AND DISCUSSED NEED FOR DIALYSIS. PT AGREES FOR SHORT TERM DIALYSIS. HD BEING DONE IN PT ROOM AT THIS MOMENT. PT WORKED WITH PT BEOFRE HD. PT ONLY ABLE TO SIT AT BEDSIDE FOR 5 MIN PER PT. Q2TURN, CALL LIGHT AT REACH. WOUND CARE CONSULTED FOR RED BOTTOM TODAY. WILL CONTINUE TO MONITOR.
--- NOTE | 2018-09-30 12:10 | NUR ---
WAS CALLED BY [place] CHIN THIS AM RE: POSSIBLE HOSPICE FOR PT. DISCUSSED WITH DR HANEY, HE MET WITH PT AND SPOUSE TO DISCUSS DIALYSIS, PT AGREEABLE TO CONTINUE DIALYSIS AT THIS TIME. SON/DPDRISS GOMEZ IN ROOM NOW, HE WILL TALK WITH PT FURTHER ABOUT HER WISHES, AWARE CM IS AVAILABLE TO ANSWER QUESTIONS. PT ON DIALYSIS AT THIS TIME IN ROOM
[2018-09-30 16:44] VITALS: BP 161/58
--- NOTE | 2018-09-30 18:17 | NUR ---
PT STATES SHE WANTS TO . DR FLORES NOTIFIED. ORDER XANAX PRN Q8 TO BE GIVEN IN A FEW . PT COMMENT PLACED ON CHART. SEE CHART. WILL CONTINUE TO MONITOR
[2018-09-30 20:00] VITALS: BP 153/49
[2018-10-01] VITALS: BP 151/46
[2018-10-01 04:00] VITALS: BP 149/47
--- NOTE | 2018-10-01 05:37 | NUR ---
ASSUMED CARE OF PT AFTER REPORT AT 1930. PT A&OX4. VSS. PHYSICAL ASSESSMENT COMPLETED AND CHARTED. PT ON HIGH FLOW NC WITH 93% O2 SAT. PT TRACING SR/1ST DEG/BBB ON TELE. PT WITH RAMIREZ TO DEPENDENT DRAIN. PICC LINE PATENT & INTACT. PT TURNED TO SIDES. SPUTUM SPECIMEN SENT TO LAB. HOURLY ROUNDING OBSERVED. HS REST & SAFETY GOALS ACHIEVED. CALL LIGHT WITHIN REACH. BED IN LOW POSITION.
[2018-10-01 08:00] VITALS: BP 138/42
[2018-10-01 12:00] VITALS: BP 164/54
--- NOTE | 2018-10-01 12:03 | NUR ---
CONTINUE TO FOLLOW, DISCUSSED WITH DR HANEY. PT MADE COMFORT CARE TODAY. DR ASKED THAT CM REASSESS TOMORROW FOR NEEDS. WILL PROVIDE SUPPORT
[2018-10-01 14:12] LABS: KAPPA FREE LIGHT CHAINS 30.7 mg/L (3.3-19.4); LAMBDA FREE LIGHT CHAINS 11.7 mg/L (5.7-26.3)
--- NOTE | 2018-10-01 18:35 | NUR ---
COMFORT CARE ORDERED. WITH O2 2 L NC. NURSE PROCEED ORDERED. PT FAMILLY IN ROOM. NURSE DISCONTINUE HIGH FLOW AND STARTED O2 2 L NC. MORPHINE, ATIVAN, GIVEN. PT MADE COMFORTABLE IN BED. WILL CONTINUE TO MONITO
--- NOTE | 2018-10-02 04:36 | NUR ---
ASSUMED CARE OF PT AFTER REPORT AT 1930. PT A&OX4. VSS. PHYSICAL ASSESSMENT COMPLETED AND CHARTED. ON COMFORT CARE. PT ON O2 AT 2L NC WITH 93% O2 SAT. ATIVAN GIVEN PER MAR. HOURLY ROUNDING OBSERVED. CALL LIGHT WITHIN REACH.
[2018-10-02 07:30] VITALS: BP 159/45
--- NOTE | 2018-10-02 10:15 | NUR ---
PT. WILL BE DISCHARGED FROM [facility] DUE TO ORDERS FOR COMFORT CARE.
--- NOTE | 2018-10-02 11:39 | NUR ---
CONTINUE TO FOLLOW, DISCUSSED WITH DR HANEY, ANTICIPATE PT MAY NEED PLACEMENT AND HOSPICE. MET WITH PT, SON AND SPOUSE. DISCUSSED POSSIBLE HOSPICE HOUSE PLACEMENT AND OPTIONS. THEY WOULD NOT CONSIDER TAKING PT HOME AND WOULD PREFER A HOSPICE HOUSE PLACEMENT AND CHOSE TO HAVE [facility] EVAL HER. CALLED AND FAXED REFERRAL TO [facility]. PATY HERE TO EVAL PT
--- NOTE | 2018-10-02 11:40 | NUR ---
WOUND CARE NOTE: CONSULT RECEIVED FOR RED BOTTOM. PATIENT PRESENTS WITH BLANCHABLE REDNESS TO SACRAL/COCCYX AREA. PARTIAL THICKNESS BREAKDOWN NOTED TO THE CENTER OF AREA. BELIEVE THIS TO BE RELATED TO MOISTURE. PATIENT WAS TURNED WITH BARIATRIC WEDGES TO THE RIGHT SIDE. EDUCATED PATIENT AND FAMILY IN ROOM ON IMPORTANCE OF TURNING TO PREVENT PRESSURE ULCER. COMMUNICATED UNDERSTANDING. RECOMMEND BARRIER OINTMENT BID AND PRN INCONTINENCE TURN Q2 HOURS LIMIT HOB <30 DEGREES IF PATIENT CAN TOLERATE LIMIT LAYERS OF LINEN UNDER PATIENT
[2018-10-02 20:00] VITALS: BP 166/55
--- NOTE | 2018-10-03 04:33 | NUR ---
Assumed pt care at 1930. Pt lethargic but responds to verbal stimulus. O2 sat at 96% with O2 via NC at 2.5L. Comfort Care measures provided.
[2018-10-03 07:30] VITALS: BP 157/46
[2018-10-03] MEDS ORDERED: ATIVAN0.5 MG PO (10:45)
[2018-10-03] MEDS ORDERED: MSL20MG/ML PO (10:46)
[2018-10-03] MEDS ORDERED: ROXANOL PO (10:48)
[2018-10-03 10:49] VITALS: BP 157/46
--- NOTE | 2018-10-03 12:41 | NUR ---
Received order from physician to d/c pt to hospice. Per previous CM note, arrangements have been made for pt to go to [facility]. Spoke with on-call liaison and faxed orders. Scheduled ambulance transport for 1400. Chart copied. RN to call report. No other needs identified. Family at bedside.
== END 2018-10-03 14:22 | disposition hospice, inpatient (51) | DRG 177 ==
LOC: M.ERS 06:09 → M.TBA-ER 08:00 → M.2W 08:00 → M.ICU 09-25 15:08 → M.2W 09-29 15:25
PROVIDERS: Emergency Medicine; Family Medicine; Internal Medicine; Internal Medicine Cardiovascular Disease; Internal Medicine Nephrology; Internal Medicine Pulmonary Disease; ADMIT Internal Medicine
DX: J69.0 Pneumonitis due to inhalation of food and vomit (principal); J96.01 Acute respiratory failure with hypoxia; J96.02 Acute respiratory failure with hypercapnia; I50.43 Acute on chronic combined systolic (congestive) and diastolic (congestive) heart failure; N17.0 Acute kidney failure with tubular necrosis; I21.4 Non-ST elevation (NSTEMI) myocardial infarction; G93.40 Encephalopathy, unspecified; R65.10 Systemic inflammatory response syndrome (SIRS) of non-infectious origin without acute organ dysfunction; Z68.41 Body mass index [BMI] 40.0-44.9, adult; E89.0 Postprocedural hypothyroidism; I48.0 Paroxysmal atrial fibrillation; E11.40 Type 2 diabetes mellitus with diabetic neuropathy, unspecified; E66.9 Obesity, unspecified; G47.33 Obstructive sleep apnea (adult) (pediatric); E87.70 Fluid overload, unspecified; E87.5 Hyperkalemia; I11.0 Hypertensive heart disease with heart failure; E83.39 Other disorders of phosphorus metabolism; Z86.73 Personal history of transient ischemic attack (TIA), and cerebral infarction without residual deficits; Z90.710 Acquired absence of both cervix and uterus; Z87.81 Personal history of (healed) traumatic fracture; Z88.6 Allergy status to analgesic agent; Z88.0 Allergy status to penicillin; Z88.2 Allergy status to sulfonamides; Z82.49 Family history of ischemic heart disease and other diseases of the circulatory system; Z91.19 Patient's noncompliance with other medical treatment and regimen